=== PATIENT | female | born 1995 | race Caucasian/White ===

== ENCOUNTER 2017-01-26 01:10 | Inpatient (IN) | payer OTHER ==
[~2017-01-26] VITALS: Ht 156.2 cm; Wt 70.3 kg
[~2017-01-26 01:10] MED LIST: D-ME118S6 PO; NP.1OP15 LEFT EYE; ONDA4TAB8 PO
[2017-01-26] MEDS ORDERED: PRENAT PO (01:18)
[2017-01-26 01:59] VITALS: BP 139/80; PULSE 68; RESP 18; Ht 156.2 cm; Wt 70.3 kg
--- NOTE | 2017-01-26 02:56 | HP ---
Date/Time of Note Date/Time of Note DATE: 01/26/17 TIME: 02:47 OB - History Hx of Present Free Text/Dictation 21 y.o who had here for uterine contractions which started 2200 on 01/25 no hx of leakage of AF EDC 01/25/17 makes her at 40w1d VE 1-2 70% -3 with pain level 7/10 admitted for expectant management poss augmentation, Chief Complaint: U.C Estimated Due Date: Jan 25, 2017 : 2 Para: 1 Spontaneous : 0 Therapeutic : 0 Care: Good Care Ultrasounds: Normal mid trimester US Obstetrical Complications: None Medical Complications: None Past Family/Social History * Past Medical, Surgical, Family and Obstetric Histories reviewed from chart. Blood Type: Unknown Rubella: unknown RPR/VDRL: Unknown GBS Status: Unknown HBsAG: Unknown OB Admission Exam Vital Signs Vital Signs Vital Signs Date Time Temp Pulse Resp B/P Pulse Ox O2 Delivery O2 Flow Rate FiO2 01/26/17 01:59 98.0 68 18 139/80 Room Air Physical Exam HEENT: WNL Heart: Rhythm Normal Lungs: Clear, Equal Abdomen: WNL Extremities: Normal Reflexes: Normal Cervical Dilatation: 1cm Effacement: 75% Station: -3 Membranes: Intact Amniotic Fluid: Unevaluable Heart Rate: 140's Accelerations: Accelerations Present Decelerations: No Decelerations Varibility: Moderate Intensity: Mild OB Assessment/Plan Other Assessment: IUP 40w1d in early labor Plan: Expectant Management, Other (poss augmentation) ZAFAR OSORIO MD Jan 26, 2017 02:56
[2017-01-26] MEDS ORDERED: METHYLERGONOVINE 0.2 MG INJ IM PRN (03:00)
[2017-01-26] MEDS ORDERED: OXYTOCIN 30 UNITS/LR 500 ML IV SCH ×3 (03:00→08:00)
[2017-01-26] MEDS ORDERED: ACETAMINOPHEN/CODEINE #3 TAB PO PRN ×3 (03:00→21:00)
[2017-01-26] MEDS ORDERED: AMPICILLIN 2 GM/NS (PMX) 100 ML IV ONE (03:00)
[2017-01-26] MEDS ORDERED: CARBOPROST 250 MCG INJ IM PRN (03:00)
[2017-01-26] MEDS ORDERED: IBUPROFEN 600 MG TAB PO PRN (03:00)
[2017-01-26] MEDS ORDERED: OXYTOCIN 30 UNITS/LR 500 ML IV PRN (03:00)
[2017-01-26] MEDS ORDERED: LIDOCAINE 1% (MPF) 30 ML INJ INJ PRN (03:00)
[2017-01-26] MEDS ORDERED: MISOPROSTOL 200 MCG TAB PR PRN (03:00)
[2017-01-26] MEDS: LACTATED RINGER'S 1,000 ML IV SCH ×2 (03:48→09:30)
[2017-01-26] MEDS: AMPICILLIN 1 GM/NS (PMX) 50 ML IV SCH ×3 (03:48→15:00)
--- NOTE | 2017-01-26 04:01 | TRIAGE ---
OB Triage Datetime Report Generated by CPN: 01/26/2017 04:00 Datetime: 01/26/2017 03:53 Time of Arrival: 01/26/2017 03:30 EGA: 40.1 Arrived By: Ambulatory Arrived From: TRIAGE Datetime: 01/26/2017 03:37 Monitor Mode: External US Datetime: 01/26/2017 03:14 Assessment Type: Admission Assessment Vaginal Bleeding: None Maternal Assessment Level of Consciousness: Fully Conscious DTR's/Clonus: DTRs 2+; No Clonus Headache: Denies Blurred Vision: No Respiratory Effort: Unlabored; Regular Rhythm; Equal Expansion Nausea/Vomiting: Denies RUQ Epigastric Pain: Denies Facial Edema: None Fall Risk Assessment History of Falling: (0) No Secondary Diagnosis: (0) No Ambulatory Aid: (0) Bedrest/Nurse Assist Gait: (0) Normal/Bedrest/Immobile Mental Status: (0) Oriented to Own Ability Datetime: 01/26/2017 03:11 Time of Arrival: 01/26/2017 03:11 EGA: 40.1 Arrived By: Ambulatory Arrived From: Home Datetime: 01/26/2017 02:30 Stage of : OB Triage Labor Evaluation Frequency: 2-5 Monitor Mode: External Duration (sec)2399: 40-90 Quality: Moderate Pattern: Normal: <= 5 Contractions in 10 Minutes Resting Tone Crocker: Relaxed Heart Rate FHR Baseline Rate: 110 Monitor Mode: External US FHR Baseline Changes: No Baseline Change Variability: Moderate 6-25 bpm Accelerations: 15X15 Decelerations: None Category: Category I Datetime: 01/26/2017 02:17 EGA: 40.1 Datetime: 01/26/2017 02:15 Stage of : OB Triage Datetime: 01/26/2017 02:10 Vaginal Exam Dilatation (cms): 1.5 Effacement (%): 70 Station: -3 Exam By: Paddy Goldman RN Vaginal Bleeding: None Cervix, Consistency: Moderate Cervix, Position: Anterior Datetime: 01/26/2017 01:34 Assessment Type: Triage Maternal Assessment Level of Consciousness: Fully Conscious DTR's/Clonus: DTRs 2+; No Clonus Headache: Denies Blurred Vision: No Respiratory Effort: Unlabored; Regular Rhythm; Equal Expansion Breath Sounds, Left: Clear and Equal Breath Sounds, Right: Clear and Equal Nausea/Vomiting: Denies RUQ Epigastric Pain: Denies Lower Extremities Edema: None Degree: None Upper Extremities Edema: None Degree: None Facial Edema: None Fall Risk Assessment History of Falling: (0) No Secondary Diagnosis: (0) No Ambulatory Aid: (0) Bedrest/Nurse Assist IV Therapy: (0) No Gait: (0) Normal/Bedrest/Immobile Mental Status: (0) Oriented to Own Ability Fall Score: 0 Fall Risk Score Definition: No Risk: No action required Pain Assessment Pain Scale: 7 Pain Presence: Intermittent Pain Type: Cramping; Contraction Pain Location: Abdomen Pain Goal: 3 Pain Relief Measures: Comfort Measures Datetime: 01/26/2017 01:15 Time of Arrival: 01/26/2017 01:04 Arrived By: Wheelchair Arrived From: Home Chief Complaint: UC's since 2199 Movement: Present Contractions: Regular Time Contractions Began: 01/25/2017 22:00 Contractions: Q2-5mins Rupture of Membranes: Denies Vaginal Bleeding: None Vaginal Discharge: Denies Recent Sexual Intercouse: Denies Abdominal Trauma: Not Applicable Patient Complaints: Contractions Time Provider Notified: 01/26/2017 02:15 Provider Notified: Dr Romeo Initial Plan: OBDULIO X2, SVE
[2017-01-26 04:04] LABS: INR 0.92; PROTIME 12.4 Sec (12.2-14.2)
[2017-01-26 04:05] LABS: PARTIAL THROMBOPLASTIN TIME 25.8 Sec (25.0-35.0)
[2017-01-26 04:06] LABS: ALANINE AMINOTRANSFERASE 22 IU/L (13-69); ALKALINE PHOSPHATASE 252 IU/L (42-121); ANION GAP 17 (8-16); ASPARTATE AMINO TRANSFERASE 20 IU/L (15-46); BILIRUBIN,INDIRECT 0.2 mg/dl (0-1.1); BILIRUBIN,TOTAL 0.2 mg/dl (0.2-1.3); BLOOD UREA NITROGEN 9 mg/dl (7-20); CALCIUM 8.8 mg/dl (8.4-10.2); CARBON DIOXIDE 23 mmol/L (21-31); CHLORIDE 106 mmol/L (97-110); CREATININE 0.49 mg/dl (0.44-1.00); GLUCOSE 84 mg/dl (70-220); POTASSIUM 3.9 mmol/L (3.5-5.1); SODIUM 142 mmol/L (135-144)
[2017-01-26 04:08] LABS: ABNORMAL IP MESSAGE 1; BASOPHILS % 0.2 % (0.0-2.0); EOSINOPHILS # 0.1 10^3/ul (0.0-0.5); EOSINOPHILS % 0.8 % (0.0-7.0); LYMPHOCYTES # 1.6 10^3/ul (0.8-2.9); LYMPHOCYTES % 15.4 % (15.0-51.0); MEAN CORPUSCULAR HEMOGLOBIN 26.5 pg (29.0-33.0); MEAN CORPUSCULAR HGB CONC 30.8 g/dl (32.0-37.0); MEAN CORPUSCULAR VOLUME 86.1 fl (82.0-101.0); MONOCYTE # 0.5 10^3/ul (0.3-0.9); MONOCYTES % 4.4 % (0.0-11.0); NEUTROPHILS % 78.5 % (39.0-77.0); NUCLEATED RED BLOOD CELLS% 0.3 /100WBC (0.0-0.0); PLATELET COUNT 92 10^3/UL (140-415); RED BLOOD COUNT 3.02 10^6/ul (4.20-5.40); RED CELL DISTRIBUTION WIDTH 15.3 % (11.5-14.5); WHITE BLOOD COUNT 10.2 10^3/ul (4.8-10.8)
[2017-01-26 04:19] LABS: POSITIVE DIFF @See below
[2017-01-26] MEDS: BUTORPHANOL 2 MG INJ IV PRN ×2 (04:21→13:36)
[2017-01-26] MEDS ORDERED: LACTATED RINGER'S 1,000 ML IV PRN (07:00)
[2017-01-26] MEDS ORDERED: FENTAnyl 2MCG/ML-ROPIV 0.2% 100 ML ONE (15:33)
[2017-01-26] MEDS ORDERED: FENTAnyl 2MCG/ML-ROPIV 0.2% 100 ML BAG EPI SCH (16:00)
[2017-01-26] MEDS ORDERED: NALOXONE (0.4 MG/ML) INJ IV PRN (16:00)
[2017-01-26] MEDS ORDERED: DIPHENHYDRAMINE 50 MG INJ IV PRN (16:00)
[2017-01-26] MEDS ORDERED: ONDANSETRON 4 MG INJ IV PRN ×2 (16:00→21:00)
--- NOTE | 2017-01-26 16:47 | LDN ---
Date/Time of Note Date/Time of Note DATE: 01/26/17 TIME: 16:43 Delivery Summary Normal spontaneous vaginal delivery of a baby girl from OA position shoulders delivered without any difficulty rest of the baby's body followed cord clamped after stopped pulsation placenta spontaneous expulsion inspected complete blood loss 200 mL patient sustained very small first degree perineal laceration repaired with 3-0 chromic at Placenta Delivered: Spontaneously Meconium: none Episiotomy: No Perineal laceration: 1 Laceration repair: Small first degree perineal laceration repaired with 3-0 chromic catgut Anesthesia type: Epidural Estimated blood loss: 250 Sponge & Needle done & correct: Yes All needle counts correct: Yes Any foreign bodies felt in the: No Problems: Delivery Information Sex Infant Sex: female Apgars 1 Minute: 9 Suctioning Nose & mouth suctioned at bismark: Yes Delee suction performed: No Umbilical Cord Umbilical cord with: 3 Vessels Cord presentations: no nuchal cord Cord Blood was obtained: Yes TREY SHELLEY MD Jan 26, 2017 16:47
[2017-01-26 20:20] VITALS: BP 120/68; PULSE 82; RESP 18
[2017-01-26 20:50] VITALS: BP 116/74; PULSE 80; RESP 18
[2017-01-26] MEDS ORDERED: ACETAMINOPHEN 325 MG TAB PO PRN (21:00)
[2017-01-26] MEDS ORDERED: NAPHAZOLINE 0.012% 15 ML OPH LEFT EYE SCH (21:00)
[2017-01-26] MEDS ORDERED: DIBUCAINE 1% 30 GM OINT PR PRN (21:00)
[2017-01-26] MEDS ORDERED: LANOLIN 7 GM TUBE TOP PRN (21:00)
[2017-01-26] MEDS ORDERED: WITCH HAZEL/GLYCERIN PAD PR PRN (21:00)
[2017-01-26] MEDS ORDERED: OXYCODONE/ASPIRIN (4.88/325) TAB PO PRN ×2 (21:00)
[2017-01-26] MEDS ORDERED: BENZOCAINE 20% 56 ML SPRAY TOP PRN (21:00)
[2017-01-26] MEDS ORDERED: ONDANSETRON 4 MG TAB PO SCH (21:00)
[2017-01-26] MEDS ORDERED: PROMETHAZINE/DM (CUP) PO PRN (21:00)
[2017-01-26] MEDS: SENNA/DOCUSATE NA (8.6MG/50MG) TAB PO SCH (21:08)
[2017-01-26] MEDS: OXYTOCIN 30 UNITS/LR 500 ML IV SCH (21:10)
[2017-01-27] VITALS: BP 119/65; PULSE 81; RESP 18
[2017-01-27] MEDS: IBUPROFEN 600 MG TAB PO SCH ×5 (00:03→23:41)
[2017-01-27] MEDS: OXYTOCIN 30 UNITS/LR 500 ML IV SCH (01:16)
[2017-01-27 03:42] VITALS: BP 109/56; PULSE 66; RESP 18
[2017-01-27 07:46] LABS: ABNORMAL IP MESSAGE 1; BASOPHILS % 0.1 % (0.0-2.0); EOSINOPHILS % 0.1 % (0.0-7.0); HEMOGLOBIN 7.5 g/dl (12.0-16.0); LYMPHOCYTES # 1.7 10^3/ul (0.8-2.9); MEAN CORPUSCULAR HEMOGLOBIN 27.5 pg (29.0-33.0); MEAN CORPUSCULAR HGB CONC 31.3 g/dl (32.0-37.0); MEAN CORPUSCULAR VOLUME 87.9 fl (82.0-101.0); MEAN PLATELET VOLUME 14.1 fl (7.4-10.4); MONOCYTE # 0.4 10^3/ul (0.3-0.9); MONOCYTES % 4.7 % (0.0-11.0); NEUTROPHIL # 6.7 10^3/ul (1.6-7.5); NEUTROPHILS % 75.2 % (39.0-77.0); NUCLEATED RED BLOOD CELLS% 0.2 /100WBC (0.0-0.0); RED BLOOD COUNT 2.73 10^6/ul (4.20-5.40); RED CELL DISTRIBUTION WIDTH 15.2 % (11.5-14.5); WHITE BLOOD COUNT 8.9 10^3/ul (4.8-10.8)
[2017-01-27 07:47] LABS: POSITIVE DIFF @See below
[2017-01-27 07:48] LABS: PLATELET COUNT 77 10^3/UL (140-415)
[2017-01-27 08:00] VITALS: BP 117/63; PULSE 72; RESP 16
--- NOTE | 2017-01-27 09:04 | PN ---
Date/Time of Note Date/Time of Note DATE: 01/27/17 TIME: 09:04 OB Subjective Subjective Subjective Post normal vaginal delivery day 1 Afebrile Vital signs are stable Abdomen soft Uterus firm Lochia normal Extremity normal Ambulation encouraged Laboratory Tests Test 01/27/17 07:15 White Blood Count 8.910^3/ul Red Blood Count 2.7310^6/ul Hemoglobin 7.5g/dl Hematocrit 24.0% Mean Corpuscular Volume 87.9fl Mean Corpuscular Hemoglobin 27.5pg Mean Corpuscular Hemoglobin Concent 31.3g/dl Red Cell Distribution Width 15.2% Platelet Count 7710^3/UL Mean Platelet Volume 14.1fl Neutrophils % 75.2% Lymphocytes % 19.0% Monocytes % 4.7% Eosinophils % 0.1% Basophils % 0.1% Nucleated Red Blood Cells % 0.2/100WBC Neutrophils # 6.710^3/ul Lymphocytes # 1.710^3/ul Monocytes # 0.410^3/ul Eosinophils # 0.010^3/ul Basophils # 0.010^3/ul Nucleated Red Blood Cells # 0.010^3/ul Current Medications Medications (Trade) Dose Ordered Sig/Hayes Route PRN Reason Start Time Stop Time Status Last Admin Dose Admin Lactated Ringer's 1,000 ml @ 125 mls/hr Q8H IV 01/26/17 02:37 01/26/17 20:38 DC 01/26/17 09:30 Ampicillin 100 ml @ 100 mls/hr ONCE ONCE IV 01/26/17 03:00 01/26/17 03:59 DC Ampicillin (Ampicillin 1 Gm/ NS (Pmx)) 50 ml @ 100 mls/hr Q4H IV 01/26/17 07:00 01/26/17 17:02 DC Butorphanol Tartrate (Stadol) 2 mg Q2H PRN IV PAIN 01/26/17 03:00 01/26/17 20:38 DC 01/26/17 13:36 Lidocaine 30 ml 30 ml ONCE PRN INJ EPISIOTOMY/TEARING 01/26/17 03:00 01/26/17 20:38 DC Oxytocin/Lactated Ringer's 500 ml @ 125 mls/hr ONCE -MAY REPEAT X1 IV 01/26/17 03:00 01/26/17 20:38 DC 01/26/17 17:05 Oxytocin/Lactated Ringer's 500 ml @ 125 mls/hr ONCE IV 01/26/17 03:00 01/26/17 20:38 DC Ibuprofen (Motrin) 600 mg ONCE PRN PO Mild Pain (Pain Score 1-3) 01/26/17 03:00 01/26/17 20:37 DC Acetaminophen/ Codeine Phosphate 2 tab 2 tab ONCE PRN PO Moderate to Severe Pain (4-10) 01/26/17 03:00 01/26/17 20:38 DC Lactated Ringer's 1,000 ml @ 2,000 mls/hr Q30M PRN IV PRE-EPIDURAL BOLUS 01/26/17 07:00 01/26/17 20:38 DC 01/26/17 15:15 Oxytocin/Lactated Ringer's 500 ml @ 0 mls/hr ONCE PRN IV For Hemorrhage Management 01/26/17 03:00 01/26/17 20:38 DC Methylergonovine Maleate (Methergine) 0.2 mg ONCE PRN IM VAGINAL BLEEDING 01/26/17 03:00 01/26/17 20:38 DC Carboprost Tromethamine (Hemabate) 250 mcg ONCE PRN IM VAGINAL BLEEDING 01/26/17 03:00 01/26/17 20:38 DC Misoprostol 1000 mcg 1,000 mcg ONCE PRN NV VAGINAL BLEEDING 01/26/17 03:00 01/26/17 20:38 DC Oxytocin/Lactated Ringer's 500 ml @ 0 mls/hr Q0M IV 01/26/17 08:00 01/26/17 20:37 DC 01/26/17 08:16 Fentanyl/ Ropivacaine 100 ml @ ud STK-MED ONCE .ROUTE 01/26/17 15:33 01/26/17 15:34 DC Naloxone HCl (Narcan) 0.1 mg Q2M PRN IV FOR RESP RATE 8 OR LESS 01/26/17 16:00 01/26/17 20:37 DC Diphenhydramine HCl (Benadryl) 25 mg Q6H PRN IV ITCHING 01/26/17 16:00 01/26/17 20:37 DC Ondansetron HCl (Zofran Inj) 4 mg Q6H PRN IV NAUSEA AND/OR VOMITING 01/26/17 16:00 01/26/17 20:37 DC Fentanyl/ Ropivacaine 100 ml 100 ml EPIDURAL INFUSION EPI 01/26/17 16:00 01/26/17 20:37 DC Oxytocin/Lactated Ringer's 500 ml @ 125 mls/hr Q4H IV 01/26/17 20:33 01/27/17 04:32 DC 01/27/17 01:16 Ibuprofen (Motrin) 600 mg Q6 PO 01/27/17 00:00 01/27/17 05:44 Acetaminophen (Tylenol Tab) 650 mg Q4H PRN PO PAIN LEVEL 1-5 01/26/17 21:00 Acetaminophen/ Codeine Phosphate (Tylenol No.3) 1 tab Q4H PRN PO PAIN LEVEL 1-5 01/26/17 21:00 Acetaminophen/ Codeine Phosphate (Tylenol No.3) 2 tab Q4H PRN PO PAIN LEVEL 6-10 01/26/17 21:00 Oxycodone/Aspirin (Percodan) 1 tab Q3H PRN PO PAIN LEVEL 1-5 01/26/17 21:00 Oxycodone/Aspirin (Percodan) 2 tab Q3H PRN PO PAIN LEVEL 6-10 01/26/17 21:00 Ondansetron HCl (Zofran Inj) 4 mg Q6H PRN IV NAUSEA AND/OR VOMITING 01/26/17 21:00 Senna/Docusate Sodium (Senokot-S) 1 tab BID PO 01/26/17 21:00 01/26/17 21:08 Witch Lena/ Glycerin (Tucks Pads) 1 pad BEDSIDE MEDICATION PRN NV HEMORRHOID/EPISIOTMY PAIN 01/26/17 21:00 01/26/17 21:03 Benzocaine (Dermoplast [place]) 1 spray BEDSIDE MEDICATION PRN TOP HEMORRHOID/EPISIOTMY PAIN 01/26/17 21:00 01/26/17 21:04 Dibucaine (Nupercainal) 1 applic BEDSIDE MEDICATION PRN NV HEMORRHOID/EPISIOTMY PAIN 01/26/17 21:00 Lanolin (Ict-U-Kgddtg) 1 applic BEDSIDE MEDICATION PRN TOP BEDSIDE FOR CHICO TO NIPPLES 01/26/17 21:00 01/26/17 21:05 Measles/Mumps/ Rubella Vaccine Live (Mmr Ii Vaccine) 0.5 ml ONCE ONCE SC* 01/28/17 09:00 01/28/17 09:01 Promethazine HCl/ Dextromethorphan (Phenergan-Dm) 5 ml Q6H PRN PO COUGH 01/26/17 21:00 Prenat Multivit/ [place]/Iron/Folic Ac () 1 tab DAILY PO 01/27/17 09:00 Naphazoline HCl (Clear Eyes / Naphcon) 2 drop QID LEFT EYE 01/26/17 21:00 Ondansetron HCl (Zofran Tab) 4 mg Q6H PO 01/26/17 21:00 Future Hold TREY SHELLEY MD Jan 27, 2017 09:04
[2017-01-27] MEDS: SENNA/DOCUSATE NA (8.6MG/50MG) TAB PO SCH ×2 (09:08→20:28)
[2017-01-27] MEDS: PRENATAL VITAMIN PO SCH (09:08)
[2017-01-27 20:00] VITALS: BP 118/73; PULSE 67; RESP 17
[2017-01-28 04:00] VITALS: BP 111/65; PULSE 70; RESP 17
[2017-01-28] MEDS: IBUPROFEN 600 MG TAB PO SCH ×2 (06:01→12:09)
[2017-01-28 08:15] VITALS: BP 128/74; PULSE 70; RESP 16
[2017-01-28] MEDS ORDERED: MEASLES,MUMPS,RUBELLA VACCINE INJ SC* ONE (09:00)
[2017-01-28 09:09] LABS: ABNORMAL IP MESSAGE 1; BASOPHILS % 0.1 % (0.0-2.0); EOSINOPHILS # 0.1 10^3/ul (0.0-0.5); EOSINOPHILS % 0.7 % (0.0-7.0); HEMATOCRIT 22.5 % (37.0-47.0); LYMPHOCYTES # 1.7 10^3/ul (0.8-2.9); LYMPHOCYTES % 21.5 % (15.0-51.0); MEAN CORPUSCULAR HGB CONC 31.1 g/dl (32.0-37.0); MEAN CORPUSCULAR VOLUME 86.9 fl (82.0-101.0); MEAN PLATELET VOLUME 13.6 fl (7.4-10.4); MONOCYTE # 0.4 10^3/ul (0.3-0.9); MONOCYTES % 4.6 % (0.0-11.0); NEUTROPHIL # 5.8 10^3/ul (1.6-7.5); NEUTROPHILS % 72.4 % (39.0-77.0); RED BLOOD COUNT 2.59 10^6/ul (4.20-5.40); RED CELL DISTRIBUTION WIDTH 15.6 % (11.5-14.5)
[2017-01-28] MEDS: PRENATAL VITAMIN PO SCH (09:20)
[2017-01-28] MEDS: SENNA/DOCUSATE NA (8.6MG/50MG) TAB PO SCH (09:20)
[2017-01-28 09:21] LABS: PLATELET COUNT 84 10^3/UL (140-415)
--- NOTE | 2017-01-28 10:13 | PD.PPDC ---
ENERGY TECHNICIAN Discharge Instruction Condition Patient Condition: Good Activity/Restrictions Activity: Normal Activity May Shower Restrictions: No Exercising No Lifting No Driving No Sexual Activity Nothing in the Vagina No [place] No Tampons, douche Follow-up Follow-up with Physician: 2, Week/Weeks Provider Information: instruction given recommended to make appointment to be seen at the clinic in 2 weeks Return to clinic for OB Instructions: Breast Tenderness Depression Blurried Vision Headache Surgical Instructions: Incisional Drainage Incisional Redness TREY SHELLEY MD Jan 28, 2017 10:13
--- NOTE | 2017-01-28 10:15 | DS ---
Date/Time of Note Date/Time of Note DATE: 01/28/17 TIME: 10:14 Discharge Summary Admission/Discharge Info Admit Date/Time Jan 26, 2017 at 03:15 Discharge Date/Time January 28, 2017 at 10 AM Discharge Diagnosis Post normal vaginal delivery day 2 Patient Condition: Good Procedures Normal vaginal delivery Hx of Present Illness Term Hospital Course Satisfactory uneventful Home Meds Active Scripts Ondansetron Hcl* (Zofran*) 4 Mg Tablet, 4 MG PO Q6H for NAUSEA AND/OR VOMITING, #30 TAB Prov:CAESAR FLOOD 07/21/15 Dextromethorphan Hb-Promethazine Hcl (Promethazine DM Syrup) 180 Ml Syrup, 5 ML PO Q6H Y for COUGH, #4 OZ Prov:CAESAR FLOOD 07/21/15 Naphazoline Hcl* (Naphcon*) 0.012% Ophth - 15 ML Drops, 2 DROP LEFT EYE QID for 3 Days, EA Prov:CAESAR FLOOD 07/21/15 Reported Medications Multivit/Min/Fol Ac/Iron/Pren* ( S*) 1 Tab Tab, 1 TAB PO DAILY, TAB 01/26/17 Follow-up Plan instructions given recommended to make appointment to be seen at the clinic in 2 weeks Primary Care Provider Nash Estevez Time spent on discharge: < 30 minutes Pending Labs Laboratory Tests Test 01/28/17 08:32 White Blood Count 8.010^3/ul (4.8-10.8) Red Blood Count 2.5910^6/ul (4.20-5.40) Hemoglobin 7.0g/dl (12.0-16.0) Hematocrit 22.5% (37.0-47.0) Mean Corpuscular Volume 86.9fl (82.0-101.0) Mean Corpuscular Hemoglobin 27.0pg (29.0-33.0) Mean Corpuscular Hemoglobin Concent 31.1g/dl (32.0-37.0) Red Cell Distribution Width 15.6% (11.5-14.5) Platelet Count 8410^3/UL (140-415) Mean Platelet Volume 13.6fl (7.4-10.4) Neutrophils % 72.4% (39.0-77.0) Lymphocytes % 21.5% (15.0-51.0) Monocytes % 4.6% (0.0-11.0) Eosinophils % 0.7% (0.0-7.0) Basophils % 0.1% (0.0-2.0) Nucleated Red Blood Cells % 0.0/100WBC (0.0-0.0) Neutrophils # 5.810^3/ul (1.6-7.5) Lymphocytes # 1.710^3/ul (0.8-2.9) Monocytes # 0.410^3/ul (0.3-0.9) Eosinophils # 0.110^3/ul (0.0-0.5) Basophils # 0.010^3/ul (0.0-0.1) Nucleated Red Blood Cells # 0.010^3/ul (0.0-0.0) TREY SHELLEY MD Jan 28, 2017 10:15
[2017-01-28 15:50] VITALS: BP 118/67; PULSE 68; RESP 19
== END 2017-01-28 17:45 | disposition home or self-care (01) | DRG 775 ==
LOC: OBT 01:10 → L-D 01:12 → OBT 03:24 → PP1 20:21
PROVIDERS: ADMIT Obstetrics & Gynecology; ATTEND Obstetrics & Gynecology
PROC: 10E0XZZ Delivery of Products of Conception, External Approach (ICD-10-PCS; principal; 2017-01-26)
PROC: 0HQ9XZZ Repair Perineum Skin, External Approach (ICD-10-PCS; 2017-01-26)
PROC: 3E033VJ Introduction of Other Hormone into Peripheral Vein, Percutaneous Approach (ICD-10-PCS; 2017-01-26)
DX: O48.0 Post-term pregnancy (principal); O70.0 First degree perineal laceration during delivery; Z3A.40 40 weeks gestation of pregnancy; Z37.0 Single live birth
CPT/HCPCS: 62319; 80053; 85025; 85384; 85610; 85730; 86592; 86850; 86900; 86901; 86920; 87340; G0463; J0595; J2590; J3010; J7120

== ENCOUNTER 2017-07-23 11:16 | Emergency (ER) | END 2017-07-23 12:06 | disposition home or self-care (01) ==

== ENCOUNTER 2017-08-09 19:46 | Emergency (ER) | END 2017-08-09 22:41 | disposition home or self-care (01) ==

== ENCOUNTER 2019-01-04 21:15 | Emergency (ER) | payer OTHER ==
[~2019-01-04] VITALS: Ht 157.5 cm; Wt 57.2 kg
[~2019-01-04 21:15] MED LIST changes: +ACET500C5 PO; +ALBU18HF INHALATION; +ALBU2.5V3 NEB; +ALBU8.5H8 INH; +IBUP-1542 PO; +PRED20TA PO; +PRENAT PO; +SODI126M NASAL
[2019-01-04 21:22] VITALS: Ht 157.5 cm; Wt 57.2 kg
[2019-01-04] MEDS ORDERED: GUAI-637 PO (23:52)
[2019-01-04] MEDS ORDERED: ALBU8.5H8 INH (23:52)
[2019-01-05 00:38] VITALS: BP 89/52; PULSE 65; RESP 16
--- NOTE | 2019-01-05 03:11 | ERD ---
ER Documentation Chief Complaint Chief Complaint SOB X'S 1 DAY; HX OF BRONCHITIS HPI Patient is 23-year-old female presented to ED for shortness of breath cough x1 day. Patient states she is coughed up a little bit of phlegm. Patient denies nausea vomiting fever chills. Patient is not a smoker. Patient is never been hospitalized for any serious illness. Patient states that the symptoms tend to be worse at night. Patient's vitals are all within normal limits. Patient denies any allergies to medications ROS All systems reviewed and are negative except as per history of present illness. Medications Home Meds Active Scripts Albuterol Sulfate* (Proair HFA*) 8.5 Gm Hfa.aer.ad, 2 PUFF INH Q4, #1 INHALER Prov:ARJUN HERRERA PA-C 01/04/19 Guaifenesin* (Robitussin*) 100 Mg/5 Ml Syrup, 100 MG PO Q4H PRN for COUGH for 7 Days, ML Prov:ARJUN HERRERA PA-C 01/04/19 Acetaminophen* (Tylophen*) 500 Mg Capsule, 1 CAP PO Q6H PRN for PAIN AND OR ELEVATED TEMP, #20 CAP Prov:SINAIMELODIEMANOJJEN Stern 08/09/17 Albuterol Sulfate* (Albuterol Sulfate* Neb) 0.083%-3 Ml Neb, 2.5 MG NEB Q4 PRN for SHORTNESS OF BREATH, #30 EA Prov:KEERTHI DILLON F 08/09/17 Prednisone* (Prednisone*) 20 Mg Tab, 60 MG PO DAILY for 4 Days, TAB Prov:KEERTHI DILLON F 08/09/17 Albuterol Sulfate* (Proair HFA*) 8.5 Gm Hfa.aer.ad, 2 PUFF INH Q4, #1 INHALER Prov:KEERTHI DILLON F 08/09/17 Albuterol Sulfate* (Ventolin HFA*) 18 Gm Hfa.aer.ad, 2 PUFF INHALATION Q4H, #1 INHALER Prov:DARIEL KEEN. POLICY CHANGE CLERKS SUPERVISOR 07/23/17 Sodium Chloride (Saline Nasal Mist) 126 Ml Mist, 2 SPRAY NASAL Q2H PRN for NASAL CONGESTION, #1 BOTTLE Prov:DARIEL KEEN. POLICY CHANGE CLERKS SUPERVISOR 07/23/17 Ibuprofen* (Motrin*) 600 Mg Tab, 600 MG PO Q6H PRN for PAIN AND OR ELEVATED TEMP, #30 TAB Prov:DARIEL KEEN POLICY CHANGE CLERKS SUPERVISOR 07/23/17 Ondansetron Hcl* (Zofran*) 4 Mg Tablet, 4 MG PO Q6H for NAUSEA AND/OR VOMITING, #30 TAB Prov:CAESAR FLOOD 07/21/15 Dextromethorphan Hb-Promethazine Hcl (Promethazine DM Syrup) 180 Ml Syrup, 5 ML PO Q6H PRN for COUGH, #4 OZ Prov:CAESAR FLOOD 07/21/15 Naphazoline Hcl* (Naphcon*) 0.012% Ophth - 15 ML Drops, 2 DROP LEFT EYE QID for 3 Days, EA Prov:CAESAR FLOOD 07/21/15 Reported Medications Multivit/Min/Fol Ac/Iron/Pren* ( S*) 1 Tab Tab, 1 TAB PO DAILY, TAB 01/26/17 Allergies Allergies: Coded Allergies: No Known Allergy (Unverified , 06/10/16) PMhx/Soc Medical and Surgical Hx: pt denies Medical Hx, pt denies Surgical Hx History of Surgery: No Anesthesia Reaction: No Hx Neurological Disorder: No Hx Respiratory Disorders: No Hx Cardiac Disorders: No Hx Psychiatric Problems: No Hx Miscellaneous Medical Probl: No Hx Alcohol Use: No Hx Substance Use: No Hx Tobacco Use: No Smoking Status: Never smoker FmHx Family History: No diabetes, No coronary disease, No other Physical Exam Vitals Vital Signs Date Temp Pulse Resp B/P (MAP) Pulse Ox O2 O2 Flow FiO2 Time Delivery Rate 01/05/19 97.8 65 16 89/52 (64) 100 Room Air 00:38 01/04/19 97.2 75 18 98/53 (68) 98 21:22 Physical Exam Const: No acute distress Head: Atraumatic Eyes: Normal Conjunctiva ENT: Normal External Ears, Nose and Mouth. Neck: Full range of motion. No meningismus. Resp: Clear to auscultation bilaterally Cardio: Regular rate and rhythm, no murmurs Abd: Soft, non tender, non distended. Normal bowel sounds Skin: No petechiae or rashes Back: No midline or flank tenderness Ext: No cyanosis, or edema Neur: Awake and alert Psych: Normal Mood and Affect Procedures/MDM Medical decision making: Patient is 23-year-old female presenting to the ED for shortness of breath and cough x1 day. Patient's physical exam was unremarkable. Patient states this happened one time before and she was used albuterol inhaler which helped. Patient states she gets this about once a year when her allergies get bad. Patient currently takes Claritin daily and states that it does help. The patient requested for me to give her a prescription for albuterol inhaler. At this time I have low suspicion for pneumonia, meningitis, sinusitis, otitis externa, acute otitis media, strep pharyngitis, epiglottitis or peritonsillar abscess. Discharging the patient with a prescription for guaifenesin and albuterol inhaler. Advised the patient if symptoms worsen return to ER immediately otherwise she should follow-up with her primary care provider in 1 to 2 days regarding this visit. Patient is agreement treatment plan had no questions upon discharge Prescription for home: Guaifenesin Pro Air inhaler I have discussed with the patient proper use and common side effects to expert with the medication . I advised the patient/family to speak with the pharmacist dispensing the medication to be advised of any potential drug interactions with other medication or supplements they may be taking. Discharge: At this time, patient is stable for discharge and outpatient management. I have instructed the patient to follow-up with his\her primary care physician in 1 to 2 days. I have discussed with the patient the possibility of needing to see a specialist for further work-up and imaging studies if symptoms persist. I have instructed the patient to promptly return to the ER for any new or worsening symptoms including increased pain, fever, nausea, vomiting, weakness or LOC. The patient and\or family expressed understanding of and agreement with this plan. All questions were answered. Home care instructions were provided. Disclaimer: Inadvertent spelling and grammatical errors are likely due to EHR\dictation software use and do not reflect on the overall quality of patient care. Also, please note that the electronic time recorded on the note does not necessarily reflect the actual time of the patient encounter. Departure Diagnosis: Primary Impression: Bronchitis Condition: Good Patient Instructions: Bronchitis, No Antibiotic (Adult) Referrals: COMMUNITY CLINICS YOU HAVE RECEIVED A MEDICAL SCREENING EXAM AND THE RESULTS INDICATE THAT YOU DO NOT HAVE A CONDITION THAT REQUIRES URGENT TREATMENT IN THE EMERGENCY DEPARTMENT. FURTHER EVALUATION AND TREATMENT OF YOUR CONDITION CAN WAIT UNTIL YOU ARE SEEN IN YOUR DOCTORS OFFICE WITHIN THE NEXT 1-2 DAYS. IT IS YOUR RESPONSIBILITY TO MAKE AN APPOINTMENT FOR FOLOW-UP CARE. IF YOU HAVE A PRIMARY DOCTOR --you should call your primary doctor and schedule an appointment IF YOU DO NOT HAVE A PRIMARY DOCTOR YOU CAN CALL OUR PHYSICIAN REFERRAL HOTLINE AT IF YOU CAN NOT AFFORD TO SEE A PHYSICIAN YOU CAN CHOSE FROM THE FOLLOWING [facility] [address] [facility] [address] [facility] [address] [facility] [address] [facility] [address] [facility]. [facility] [address] [facility] YOU HAVE RECEIVED A MEDICAL SCREENING EXAM AND THE RESULTS INDICATE THAT YOU DO NOT HAVE A CONDITION THAT REQUIRES URGENT TREATMENT IN THE EMERGENCY DEPARTMENT. FURTHER EVALUATION AND TREATMENT OF YOUR CONDITION CAN WAIT UNTIL YOU ARE SEEN IN YOUR DOCTORS OFFICE WITHIN THE NEXT 1-2 DAYS. IT IS YOUR RESPONSIBILITY TO MAKE AN APPOINTMENT FOR FOLOW-UP CARE. IF YOU HAVE A PRIMARY DOCTOR --you should call your primary doctor and schedule and appointment IF YOU DO NOT HAVE A PRIMARY DOCTOR YOU CAN CALL OUR PHYSICIAN REFERRAL HOTLINE AT . IF YOU CAN NOT AFFORD TO SEE A PHYSICIAN YOU CAN CHOSE FROM THE FOLLOWING [facility] INSTITUTIONS: [facility] [address] [place] [address] [facility] [address] [place] [address] [facility] [address] [place] [address] Additional Instructions: Call your primary care doctor TOMORROW for an appointment during the next 1-2 days.See the doctor sooner or return here if your condition worsens before your appointment time. ARJUN HERRERA PA-C Jan 05, 2019 03:11
== END 2019-01-05 00:38 | disposition home or self-care (01) ==
LOC: FTE 21:15
DX: J40 Bronchitis, not specified as acute or chronic (principal)
CPT/HCPCS: 99283